=== PATIENT | female | born 1975 | race Caucasian/White ===

== ENCOUNTER 2021-01-10 21:41 | Observation (INO) | payer BC, OTHER ==
[~2021-01-10] VITALS: Ht 154.9 cm; Wt 95.2 kg
[2021-01-11 00:56] LABS: ABG BASE EXCESS -0.3 MMOL/L (-2.5-2.5); ABG OXYGEN SATURATION 99 % (94-100); ABG PCO2 48 MMHG (35-45); ABG PO2 108 MMHG (79-93); ABG TCO2 26.5 MMOL/L (21.0-31.0)
[2021-01-11 01:00] LABS: ALLENS TEST YES-POS; INSPIRED O2 2L; VENTILATOR NO
[2021-01-11 01:01] LABS: ABG PH 7.33 (7.37-7.43); PATIENT TEMP 36.3
[2021-01-11 01:19] LABS: BASOPHILS # (AUTO) 0.1 10^3/uL (0.0-0.1); BASOPHILS % (AUTO) 1 % (0-10); EOSINOPHILS # (AUTO) 0.3 10^3/uL (0.0-0.3); EOSINOPHILS % (AUTO) 4 % (0-10); HEMATOCRIT 40 % (35-52); HEMOGLOBIN 12.8 g/dL (11.5-16.0); LYMPHOCYTES # (AUTO) 2.7 10^3/uL (1.0-4.0); LYMPHOCYTES % (AUTO) 35 % (12-44); MEAN CORPUSCULAR HEMOGLOBIN 30 pg (25-34); MEAN CORPUSCULAR HGB CONC 32 g/dL (32-36); MEAN CORPUSCULAR VOLUME 93 fL (80-99); MEAN PLATELET VOLUME 8.3 fL (9.0-12.2); MONOCYTES # (AUTO) 0.5 10^3/uL (0.0-1.0); MONOCYTES % (AUTO) 6 % (0-12); NEUTROPHILS # (AUTO) 4.3 10^3/uL (1.8-7.8); NEUTROPHILS % (AUTO) 54 % (42-75); PLATELET COUNT 338 10^3/uL (130-400); WHITE BLOOD COUNT 7.9 10^3/uL (4.3-11.0)
[2021-01-11 01:31] LABS: ALBUMIN 3.8 GM/DL (3.2-4.5); POTASSIUM 3.6 MMOL/L (3.6-5.0)
[2021-01-11 01:32] LABS: CALCIUM 8.1 MG/DL (8.5-10.1)
[2021-01-11 01:34] LABS: TOTAL PROTEIN 6.5 GM/DL (6.4-8.2)
[2021-01-11 01:35] LABS: BILIRUBIN,TOTAL 0.4 MG/DL (0.1-1.0)
[2021-01-11 01:37] LABS: CREATININE SERUM 0.56 MG/DL (0.60-1.30); PHOSPHORUS 3.2 MG/DL (2.3-4.7)
[2021-01-11 01:40] LABS: MAGNESIUM 1.8 MG/DL (1.6-2.4)
--- NOTE | 2021-01-11 02:43 | Tele-ICU Progress Note ---
Progress Note 45F transferred from [facility] for overdose. Per report she was despondent over a warrant over some embezzelment charges, left a suicide note and then took an overdose. Thought to have taken seroquel 50 mg x 7-8 tabs, xanax 0.5 mg x 22 tabs and a 12-pack of beer. She is a daily drinker. Ingestion time between 1500 and 1800. On arrival to ICU after 0200 she is somnolent but arousable and answering questions, falls back asleep quickly. Only notable deficit is pupilary, with right pupil 6 and briskly reactive, left 4 and sluggish. Presumably this is her baseline, would not be related to a PO rx with unilateral eye symptoms. Will obtain more history when patient is awake. - overdose: poison control following, no apparent coingestions. Likely out of the intubation risk window. Continue to monitor mental status. QT monitoring, labs in AM. - etoh: monitor for withdrawal symptoms, start CIWA at this time. Given benzo overdose, would not start prior to emergence of symptoms. Focused Exam Height, Weight, BMI Height: '" Weight: lbs. oz. kg; 40.00 BMI Method: KASEY HINTON MD Jan 11, 2021 02:43
[2021-01-11] MEDS ORDERED: RT-ALBUTEROL HFA 8.5 GM INHALER IH PRN (08:00)
[2021-01-11] MEDS ORDERED: RT-ALBUTEROL SULF 2.5 MG/3 ML PRE-MIX VIAL INH PRN (08:30)
--- NOTE | 2021-01-11 08:32 | History & Physical-Hospitalist ---
History of Present Illness HPI/Chief Complaint Pt is a 45yoCF with a PMH of ADD and anxiety who presented to outside ER due to overdose. She reportedly found out she has a warrant out for her arrest due to what sounds like embezzlement. She has been under a lot of stress due to her mother potentially losing her house as well. She decided that her family would be better off if she were and decided to overdose. She left a suicide note and was then took roughly 7-8 tabs of 50mg Seroquel, 22 tabs of 0.5mg Xanax,and drank a 12 pack of beer. She was found by her boyfriend unresponsive and brought in for evaluation. She reports this morning she no longer wants to but is still very stressed about her situation. She was admitted to the ICU for monitoring of respiratory status. Source: patient Date Seen 01/11/21 Time Seen by a Provider: 08:26 Attending Physician Kyle Pedro MD PCP Referring Physician Date of Admission Jan 11, 2021 at 00:27 Home Medications & Allergies Home Medications Reviewed patient Home Medication Reconciliation performed by pharmacy medication reconciliations ecg technician and/or nursing. Patients Allergies have been reviewed. Allergies Allergies Coded Allergies oseltamivir (Verified Allergy, Unknown, 01/11/21) Past Pbpikzn-Ouybhi-Rlbdno Hx Patient Social History Marrital Status: single Employed/Student: employed Tobacco Use?: Yes Tobacco type used: Cigarettes Smoking Status: Current Everyday Smoker (1ppd) Use of E-Cig and/or Vaping dev: No Substance use?: Yes Substance type: Misuse of prescript meds Alcohol Use?: Yes Alcohol type: Beer Alcohol Frequency: Daily Pt feels they are or have been: No Current Status Advance Directives: No Communicates: Verbally Primary Language: Tristanian Preferred Spoken Language: Tristanian Is interpretation needed?: No Past Medical History ADD/ADHD, Anxiety Family Medical History Reviewed Nursing Family Hx Mother alive Review of Systems Constitutional: No chills, No fever, No malaise EENTM: no symptoms reported Respiratory: No short of breath Cardiovascular: No chest pain, No palpitations Gastrointestinal: No abdominal pain, No nausea, No vomiting Genitourinary: No dysuria Musculoskeletal: no symptoms reported Skin: no symptoms reported Psychiatric/Neurological: See HPI Physical Exam Physical Exam Vital Signs Vital Signs - First Documented 01/11/21 00:30 Temp 36.3 Pulse 89 Resp 14 B/P (MAP) 158/92 (114) Pulse Ox 91 O2 Delivery Room Air O2 Flow Rate 2.00 Capillary Refill : Height, Weight, BMI Height: '" Weight: lbs. oz. 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 Assessment/Plan Admission Diagnosis Intentional overdose, suicide attempt Admission Status: Observation Assessment and Plan Intentional overdose, suicide attempt Poison control contacted Intial EKG showed qtc 508, now resolved SAVE line Monitor on telemetry while here but can DC per poison control recs Screened our outpatient follow up, Enrique Flores screened and contacted patient's family/SO who will stay with pt DC home for outpatient services KATHIE MENDEZ MD Jan 11, 2021 08:31
[2021-01-11] MEDS ORDERED: NICOTINE 14 MG (NICODERM) PATCH TD SCH (09:00)
--- NOTE | 2021-01-11 12:27 | Discharge Inst-Simple/Standard ---
Discharge Inst-Standard Discharge Medications New, Converted or Re-Newed RX: Transmitted to Pharmacy Patient Instructions/Follow Up Plan of Care/Instructions/FU: Please continue to take your medications as written. Please follow up with your primary care doctor to follow up this hospital stay. Activity as Tolerated: Yes Discharge Diet: No Restrictions Return to The Hospital For: Thoughts of self harm, anxiety, depression, if you feel you are getting worse. KATHIE MENDEZ MD Jan 11, 2021 12:27
[2021-01-11] MEDS ORDERED: ASPI-789 PO (14:16)
[2021-01-11] MEDS ORDERED: RT-ALBUINH INH (14:16)
[2021-01-11] MEDS ORDERED: [UNRECOGNIZED DRUG - CODE] PO (14:16)
[2021-01-11] MEDS ORDERED: HYDR-700 PO (14:16)
[2021-01-11] MEDS ORDERED: DEXT30TA12 PO (14:16)
[2021-01-11] MEDS ORDERED: ALPR0.5T7 PO (14:16)
[2021-01-12] MEDS ORDERED: NICOTINE PATCH REMOVAL TP SCH (08:59)
== END 2021-01-11 15:18 | disposition home or self-care (01) ==
LOC: ICU 01-11 00:27 → INTOOBSV 01-11 00:27
PROVIDERS: ADMIT Internal Medicine; ATTEND Internal Medicine
DX: T43.592A Poisoning by other antipsychotics and neuroleptics, intentional self-harm, initial encounter (principal); F41.9 Anxiety disorder, unspecified; F98.8 Other specified behavioral and emotional disorders with onset usually occurring in childhood and adolescence; F17.210 Nicotine dependence, cigarettes, uncomplicated
CPT/HCPCS: 80053; 82805; 83735; 84100; 85025; 87081; 93005; 94640; G0378; G0379; G0480; 36415; 80329; 99211